=== PATIENT | male | born 1950 | race Caucasian/White ===

== ENCOUNTER 2018-12-22 05:40 | Day surgery (SDC) | payer MEDICARE ==
[2018-12-20 11:27] VITALS: BP 124/76
[2018-12-20 11:33] LABS: BASOPHILS % (AUTO) 1.4 % (0.0-5.0); EOSINOPHILS % (AUTO) 4.4 % (0.0-8.0); LYMPHOCYTES % (AUTO) 28.2 % (21.0-51.0); MEAN CORPUSCULAR HEMOGLOBIN 29.9 pg (27.0-33.0); MEAN CORPUSCULAR HGB CONC 33.6 g/dL (32.0-36.0); MONOCYTES % (AUTO) 6.9 % (3.0-13.0); NEUTROPHILS % (AUTO) 59.1 % (40.0-77.0); PLATELET COUNT (AUTO) 235 K/uL (130-400); RED BLOOD CELL COUNT(AUTO) 5.06 MIL/uL (4.50-6.20); RED CELL DISTRIBUTION WIDTH 13.3 % (11.0-15.5); WHITE BLOOD COUNT (AUTO) 5.6 K/uL (4.8-10.8)
[2018-12-20 11:40] LABS: POTASSIUM 4.2 mmol/L (3.5-5.1)
[2018-12-20 11:42] LABS: INR 1.02 (0.85-1.15); PARTIAL THROMBOPLASTIN TIME 31.7 SEC (26.3-35.5); PROTHROMBIN TIME 10.7 SEC (9.6-11.6)
[2018-12-20 12:16] LABS: BILIRUBIN,URINE Negative (NEGATIVE); COLOR,URINE Yellow (YELLOW); GLUCOSE, URINE (UA) Negative (NEGATIVE); KETONES,URINE Negative (NEGATIVE); LEUKOCYTE ESTERASE ,URINE Negative (NEGATIVE); NITRATE,URINE Negative (NEGATIVE); OCCULT BLOOD,URINE Negative (NEGATIVE); PH,URINE 5.5 (5.0-8.0); PROTEIN,URINE Negative (NEGATIVE)
[2018-12-20 12:23] LABS: APPEARANCE,URINE CLEAR (CLEAR)
[~2018-12-22] VITALS: Ht 185.4 cm; Wt 115.0 kg
[2018-12-22] VITALS (12 sets, daily range): BP systolic 122–132; BP diastolic 71–86
[~2018-12-22 05:40] MED LIST: AMLO5TAB9 PO; ASPI-555 PO; CHOL100044 PO; ISOS20TA7 PO; LISI-617 PO; NITR0.4T50 SL; NORT25CA3 PO; OMEP20CA10 PO; SIMV20TA6 PO; SODIUM CHLORIDE 0.9% 500ML 500 ML IV SCH; VITAMIN B12 PO
--- NOTE | 2018-12-22 06:15 | NUR ---
Pt admit to room 15 Pt AAOX3, accompanied by spouse. Pt identifiers completed. Allergies verified. Medication reconciliation completed. Pt aware of placed procedure. All questions answered. Assessment completed at bedside. Pt denies any chest pain at this time. Pt voiced last chest pain episode was a couple of day ago. Pt states he has not had to use nitro for his chest pain since prescribed. Pt attached to cardiac exercise specialist. No distress noted. Will continue to monitor.
[2018-12-22] MEDS ORDERED: SODIUM CHLORIDE 0.9% 1000ML 1,000 ML IV ONE (08:32)
[2018-12-22] MEDS ORDERED: LIDOCAINE HCL 2% 20ML ONE (08:43)
[2018-12-22] MEDS ORDERED: IOHEXOL 350 MG/ML 100ML INFUS..BTL IV ONE (08:43)
[2018-12-22] MEDS ORDERED: IOHEXOL-350 50ML VIAL IV ONE (08:43)
--- NOTE | 2018-12-22 08:45 | NUR ---
pt in route to shop laborer In route to shop laborer by Maico Peter
[2018-12-22] MEDS ORDERED: IOHEXOL-350 75 ML VIAL IV ONE (09:13)
--- NOTE | 2018-12-22 13:51 | NUR ---
Pt dc home Pt continues asymptomatic. Perclose to right groin continues dry and intact, no bleeding or hematoma noted. PT and spouse were given discharge instructions. Pt aware of medication adjustments, advised as per MD orders to discontinue vitamin D and nortriptyline. Advised pt to f/u with PCP on medication adjustments. Aware of f./u appt with MD Beck on 01/06/19 at 1240pm. Pt and spouse were given on signs and symptoms to observe post procedure. All questions answered. PT dc home via wheelchair.
== END 2018-12-22 13:51 | disposition home or self-care (01) ==
LOC: DAH 05:40
PROVIDERS: ATTEND Internal Medicine Cardiovascular Disease
DX: I25.118 Atherosclerotic heart disease of native coronary artery with other forms of angina pectoris (principal); I10 Essential (primary) hypertension; E78.5 Hyperlipidemia, unspecified; G62.9 Polyneuropathy, unspecified; Z98.890 Other specified postprocedural states; Z87.891 Personal history of nicotine dependence; Z79.01 Long term (current) use of anticoagulants; Z79.899 Other long term (current) drug therapy; Z82.49 Family history of ischemic heart disease and other diseases of the circulatory system; R07.9 Chest pain, unspecified
CPT/HCPCS: 36415; 71045; 80048; 81003; 85025; 85610; 85730; 93005; 93458; A4606; C1760; C1894; J1644 ×2; J3490; J7030; Q9965; Q9967 ×2

== ENCOUNTER 2019-02-01 05:43 | Observation (INO) | payer MEDICARE ==
[2019-01-30 12:48] LABS: BASOPHILS % (AUTO) 1.2 % (0.0-5.0); EOSINOPHILS % (AUTO) 3.6 % (0.0-8.0); HEMATOCRIT 44.4 % (42-54); LYMPHOCYTES % (AUTO) 25.7 % (21.0-51.0); MEAN CORPUSCULAR HEMOGLOBIN 30.4 pg (27.0-33.0); MEAN CORPUSCULAR HGB CONC 33.9 g/dL (32.0-36.0); MEAN CORPUSCULAR VOLUME 89.7 fL (79-99); MONOCYTES % (AUTO) 9.1 % (3.0-13.0); NEUTROPHILS % (AUTO) 60.4 % (40.0-77.0); NUCLEATED RED BLOOD CELLS 0.1 % (0.0-0.19); PLATELET COUNT (AUTO) 218 K/uL (130-400); RED BLOOD CELL COUNT(AUTO) 4.96 MIL/uL (4.50-6.20); RED CELL DISTRIBUTION WIDTH 14.1 % (11.0-15.5); WHITE BLOOD COUNT (AUTO) 6.2 K/uL (4.8-10.8)
[2019-01-30 12:49] VITALS: BP 115/67
[2019-01-30 12:50] LABS: APPEARANCE,URINE Clear (CLEAR); BILIRUBIN,URINE Negative (NEGATIVE); COLOR,URINE Yellow (YELLOW); GLUCOSE, URINE (UA) Negative (NEGATIVE); KETONES,URINE Negative (NEGATIVE); LEUKOCYTE ESTERASE ,URINE Trace (NEGATIVE); NITRATE,URINE Negative (NEGATIVE); OCCULT BLOOD,URINE Negative (NEGATIVE); PROTEIN,URINE Negative (NEGATIVE)
[2019-01-30 13:01] LABS: CREATININE 1.1 mg/dL (0.5-1.5); POTASSIUM 4.5 mmol/L (3.5-5.1)
[2019-01-30 13:02] LABS: INR 1.02 (0.85-1.15); PARTIAL THROMBOPLASTIN TIME 30.6 SEC (26.3-35.5); PROTHROMBIN TIME 10.7 SEC (9.6-11.6)
[2019-01-30 13:04] LABS: BACTERIA,URINE Rare /HPF (None Seen); RBC,URINE 0-1 /HPF (0-1); SQUAMOUS EPITHELIAL CELL,UR Rare /HPF (0-2); WBC,URINE 0-1 /HPF (0-1)
[~2019-02-01] VITALS: Ht 186.7 cm; Wt 113.9 kg
[2019-02-01] VITALS (10 sets, daily range): BP systolic 107–131; BP diastolic 60–87
[~2019-02-01 05:43] MED LIST changes: -CHOL100044 PO; +RANO500T2 PO
[2019-02-01] MEDS ORDERED: SODIUM CHLORIDE 0.9% 1000ML 1,000 ML IV ONE (06:09)
[2019-02-01] MEDS ORDERED: ADENOSINE 90MG/30ML VIAL IV ONE (07:13)
[2019-02-01] MEDS ORDERED: LIDOCAINE HCL 2% 20ML ONE (07:14)
[2019-02-01] MEDS ORDERED: HEPARIN SODIUM 1000UNIT/ML 10ML VIAL ONE (07:14)
[2019-02-01] MEDS ORDERED: NITROGLYCERIN 5 MG/ML 10 ML VIAL IV ONE (07:14)
[2019-02-01] MEDS ORDERED: IOHEXOL 350 MG/ML 100ML INFUS..BTL IV ONE ×2 (07:14→08:05)
[2019-02-01] MEDS ORDERED: IOHEXOL-350 50ML VIAL IV ONE (07:14)
--- NOTE | 2019-02-01 07:15 | NUR ---
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 SPOUSE AT BEDSIDE
[2019-02-01] MEDS ORDERED: CLOPIDOGREL BISULFATE 300 MG TAB ONE (08:24)
[2019-02-01] MEDS ORDERED: ASPIRIN 81MG TAB.CHEW ONE (08:24)
[2019-02-01] MEDS ORDERED: ACETAMINOPHEN 325 MG TAB PO PRN (09:00)
[2019-02-01] MEDS ORDERED: ONDANSETRON HCL 4 MG/2 ML VIAL IVP PRN (09:00)
[2019-02-01] MEDS: LISINOPRIL 5 MG TABLET PO SCH (09:00)
[2019-02-01] MEDS ORDERED: NITROGLYCERIN 0.4 MG SL TAB SL SCH (09:00)
[2019-02-01] MEDS: CLOPIDOGREL BISULFATE 75 MG TAB PO SCH (09:00)
[2019-02-01] MEDS: ISOSORBIDE MONONITRATE 20 MG TABLET PO SCH ×2 (09:00→20:56)
[2019-02-01] MEDS ORDERED: MEPERIDINE-PF 25 MG/ML SYG IVP SCH (09:00)
[2019-02-01] MEDS ORDERED: ONDANSETRON HCL 4 MG/2 ML VIAL IVP SCH (09:00)
[2019-02-01] MEDS ORDERED: VITAMIN B12 PO SCH (09:00)
[2019-02-01] MEDS: PANTOPRAZOLE SODIUM 40 MG TABLET.DR PO SCH (10:20)
[2019-02-01] MEDS ORDERED: SIMVASTATIN 20 MG TABLET PO SCH (21:00)
[2019-02-01] MEDS ORDERED: ASPIRIN 81MG TAB.CHEW PO SCH (21:00)
[2019-02-01] MEDS ORDERED: NORTRIPTYLINE HCL 25 MG CAPSULE PO SCH (21:00)
[2019-02-01] MEDS ORDERED: AMLODIPINE BESYLATE 5 MG TAB PO SCH (21:00)
[2019-02-02] VITALS: BP 125/72
[2019-02-02 03:30] VITALS: BP 117/74
[2019-02-02 08:02] VITALS: BP 138/85
[2019-02-02] MEDS: CLOPIDOGREL BISULFATE 75 MG TAB PO SCH (09:21)
[2019-02-02] MEDS: PANTOPRAZOLE SODIUM 40 MG TABLET.DR PO SCH (09:21)
[2019-02-02] MEDS: ISOSORBIDE MONONITRATE 20 MG TABLET PO SCH (09:22)
[2019-02-02] MEDS: LISINOPRIL 5 MG TABLET PO SCH (09:22)
[2019-02-02] MEDS ORDERED: CLOP75TA14 PO (09:45)
[2019-02-02] MEDS ORDERED: PANT40TA25 PO (11:15)
[2019-02-02 11:43] VITALS: BP 134/86
== END 2019-02-02 12:20 | disposition home or self-care (01) ==
LOC: DAH 05:43 → 2AH 05:44 → DAH 05:44
PROVIDERS: ADMIT Internal Medicine; ATTEND Internal Medicine
DX: I25.110 Atherosclerotic heart disease of native coronary artery with unstable angina pectoris (principal); E78.5 Hyperlipidemia, unspecified; I11.9 Hypertensive heart disease without heart failure; K21.9 Gastro-esophageal reflux disease without esophagitis; Z96.653 Presence of artificial knee joint, bilateral; Z88.5 Allergy status to narcotic agent; Z79.899 Other long term (current) drug therapy; Z79.01 Long term (current) use of anticoagulants
CPT/HCPCS: 36415 ×2; 71045; 80048; 81001; 85025; 85610; 85730 ×2; 93005; 93454; 93571; A4606; C1769 ×3; C1874; C1887 ×3; C1894; C9600; G0378 ×31; J0153; J1644 ×3; J3490 ×2; J7030; Q9965 ×2; Q9967 ×2